=== PATIENT | female | born 1960 | race African-American/Black ===

== ENCOUNTER 2016-11-10 17:56 | Emergency (ER) | payer OTHER ==
[~2016-11-10] VITALS: Ht 167.6 cm; Wt 894.8 kg
[~2016-11-10 17:56] MED LIST: ACID REDUCER150 MG PO; ADVAIR 250-501 EACH; AMLODIPINE BESY10 MG PO; AMLODIPINE BESYL5 MG PO; ANCEF,KEFZ2 GM/100 M IV; ANTIVERT25 MG PO; APRESOLIN50 MG PO; APRESOLINE50 M1 PO; ASPIR 8181 M1 PO; ASPIR-LOW81 M1 PO; ASPIR-LOW81 MG PO; ASPIRIN E.C.81 M1 PO; ASPIRIN81 M1 PO; Advair HFA 115/21 IH; Apresoline PO; Aspirin E.C. PO; BACTRIM,SEPT1 TABLET PO; CLINDAMYCIN HC300 MG PO; CLOPIDOGREL75 MG PO; CYCLOBENZAPRINE5 MG PO; Colace PO; DIFLUCAN150 MG PO; DOCUSATE SODIU100 MG PO; Diflucan PO; Dulcolax PO; ERGOCALCIF50000 UNIT PO; GABAPENTIN300 MG PO; GLUCOPHAGE1000 MG PO; GLUCOPHAGE500 MG PO; HUMULIN 70100 UNIT/2 SC; HYDRALAZINE HCL50 MG PO; HYDROCHLOROTHIA25 MG PO; HYDROCODON-ACE1 EAC8 PO; HYDROMORPHONE HC4 MG PO; Habitrol,Nicoderm CQ TD; Hydrodiuril,Oretic,E PO; IBUPROFEN600 MG PO; IBUPROFEN800 MG PO; KEFLEX500 MG PO; LANTUS 10100 UNITS/ SC; LANTUS 3 M100 UNITS/ SC; LANTUS 3 M100 UNITS1 SC; LEVEMIR100 UNIT/2 SC; LISINOPRIL40 MG PO; LOPRESSOR100 M1 PO; LOPRESSOR50 MG PO; LYRICA50 MG; LYRICA50 MG PO; Levaquin PO; Lopressor PO; MECLIZINE HCL25 MG PO; MEDIHONEY44 ML TP; METOPROLOL TAR100 MG PO; MOTRIN800 MG PO; Monistat 7 VG; NAPROSYN500 MG PO; NAPROXEN500 M2; NEURONTIN300 MG PO; NIX 5% CREAM60 GM TP; NORTRIPTYLINE H25 MG PO; NOVOLOG 10100 UNITS/ SC; NOVOLOG MI100 UNIT/M SC; NOVOLOG PE100 UNITS/ SC; ONE-A-DAY ESSE1 EACH PO; OXYCODONE-APAP1 EACH PO; PERCOCET 10/1 TABLET PO; PERCOCET 5/31 TABLET PO; PLAVIX75 MG PO; POLYETHYLENE GL17 GM PO; PRILOSEC OTC20 MG PO; PROAIR HFA8.5 GM IH; PROTONIX40 MG PO; PROVENTIL HFA6.7 GM IH; PROVENTIL2.5 MG/3 M IH; Plavix PO; Protonix PO; Proventil,Ventolin H IH; RANITIDINE HCL150 MG; RANITIDINE HCL150 MG PO; SIMVASTATIN20 MG PO; SPIRIVA1 INHALATI IH; Senokot S,Pericolace PO; THERAGRAN1 TABLET PO; TOPROL XL100 MG PO; TRAMADOL HCL50 MG PO; Tylenol Regular Stre PO; ULTRAM50 MG PO; VANCOMYCIN HCL1 GM IV; Vicodin,Norco 5/325 PO; ZANTAC150 MG PO; ZESTRIL,PRINIVI40 MG PO; ZESTRIL40 MG PO; ZOCOR20 MG PO; ZOCOR40 MG PO; ZOFRAN4 MG PO; Zestril,Prinivil PO; Zocor PO; oxyCODONE PO; predniSONE PO
[2016-11-10] MEDS ORDERED: KEFLEX500 MG PO (21:18)
[2016-11-10 21:26] VITALS: BP 161/75
== END 2016-11-10 21:28 | disposition home or self-care (01) ==
LOC: EME 17:56
DX: M77.31 Calcaneal spur, right foot (principal); L03.115 Cellulitis of right lower limb; E11.9 Type 2 diabetes mellitus without complications; Z79.4 Long term (current) use of insulin; Z87.891 Personal history of nicotine dependence; I10 Essential (primary) hypertension; E78.5 Hyperlipidemia, unspecified; G89.29 Other chronic pain; Z79.891 Long term (current) use of opiate analgesic; Z79.82 Long term (current) use of aspirin; Z79.02 Long term (current) use of antithrombotics/antiplatelets; J45.909 Unspecified asthma, uncomplicated
CPT/HCPCS: 73630; 99281; 99283

== ENCOUNTER 2017-08-15 19:18 | Inpatient (IN) | payer OTHER ==
[~2017-08-15] VITALS: Ht 167.6 cm; Wt 80.6 kg
[2017-08-15 19:38] LABS: HEMATOCRIT 39.4 % (36.0-46.0); MCH 27.3 PG (29.0-34.0); MCHC 32.7 G/DL (30.0-36.0); MCV 83.3 FL (83-99); MEAN PLAT.VOLUME 10.7 uM^3 (9.5-12.4); PLATELET COUNT 176 K/uL (156-360); RBC DIS.WIDTH-CV 12.2 % (11.8-14.6); RBC DIS.WIDTH-SD 37.3 % (39-53); RED BLOOD COUNT 4.73 M/uL (3.80-5.20); WHITE BLOOD COUNT 6.5 K/uL (4.1-10.2)
[2017-08-15 19:45] LABS: AMYLASE 45 IU/L (1-118); CHLORIDE 105 mEq/L (99-109); POTASSIUM 3.9 mEq/L (3.7-5.4); PROTHROMBIN TIME 11.9 SEC (10.2-12.9); SODIUM 142 mEq/L (136-147)
[2017-08-15 19:47] LABS: GLUCOSE 193 mg/dL (70-99); PTT 28.6 SEC (25-37)
[2017-08-15 19:48] LABS: ANION GAP 9 MEQ/L (2-14)
[2017-08-15 19:51] LABS: GFR ESTIMATE (CALCULATED) > 59 mL/min/
[2017-08-15 19:52] LABS: UREA NITROGEN (BUN) 11 mg/dL (9-23)
[2017-08-15 19:54] LABS: LIPASE 6 U/L (1.0-51.0)
[2017-08-15 19:58] LABS: TROP-I INTERPRETATION NEGATIVE; TROPONIN-I 0.01 ng/mL (0.0-0.30)
[2017-08-15] MEDS ORDERED: LANTUS 10100 UNITS/ SC (23:24)
[2017-08-15] MEDS ORDERED: OXYMORPHONE HCL5 M1 PO (23:26)
[2017-08-15] MEDS ORDERED: AMLODIPINE BESY10 MG PO (23:28)
[2017-08-15] MEDS ORDERED: TESSALON PERLE100 MG PO (23:29)
[2017-08-16 02:39] LABS: TROP-I INTERPRETATION NEGATIVE; TROPONIN-I 0.01 ng/mL (0.0-0.30)
[2017-08-16 03:24] VITALS: BP 205/84
[2017-08-16 05:59] LABS: AMPHETAMINES QUANT VALUE 0 NG/ML; BARBITUATES QUANT VALUE 0 NG/ML; BENZODIAZEPINES QUANT VALUE 0 NG/ML; BENZODIAZEPINES, URINE SCREEN Negative (200 ng/mL); MARIJUANA QUANT VALUE 0 NG/ML; PHENCYCLIDINE QUANT VALUE 0 NG/ML
[2017-08-16 07:55] VITALS: BP 148/65
[2017-08-16 08:28] LABS: POINT-OF-CARE METER ID UU14188625
[2017-08-16 08:52] LABS: TROP-I INTERPRETATION NEGATIVE; TROPONIN-I 0.01 ng/mL (0.0-0.30)
[2017-08-16 08:57] LABS: HDL CHOLESTEROL 32 MG/DL (Desirable>=50); LDL CHOLESTEROL 127 mg/dL (Desirable<100); NON-HDL CHOLESTEROL 165 mg/dL (Desirable<160); TOTAL CHOLESTEROL 197 mg/dL (Desirable<200); TRIGLYCERIDES 192 MG/DL (Normal: <150)
[2017-08-16 09:15] LABS: Estimated Average Glucose 206 mg/dL (70-123); HEMOGLOBIN A1c (GLYCOHEMOGLOB) 8.8 % HGB (Below 5.7)
[2017-08-16 11:53] LABS: POINT-OF-CARE METER ID UU14174225
[2017-08-16 12:00] VITALS: BP 134/63
[2017-08-16 17:23] LABS: POINT-OF-CARE METER ID UU13113717
[2017-08-16 18:34] LABS: POINT-OF-CARE METER ID UU14188625
[2017-08-16 20:01] VITALS: BP 136/65
[2017-08-16 20:59] LABS: POINT-OF-CARE METER ID UU13113717
[2017-08-16 23:39] VITALS: BP 189/71
[2017-08-17 03:46] VITALS: BP 154/71
[2017-08-17 07:02] LABS: POINT-OF-CARE METER ID UU13113717
[2017-08-17 07:06] VITALS: BP 128/58
[2017-08-17 07:11] LABS: HEMATOCRIT 33.2 % (36.0-46.0); MCH 27.1 PG (29.0-34.0); MCHC 32.5 G/DL (30.0-36.0); MCV 83.4 FL (83-99); MEAN PLAT.VOLUME 12.1 uM^3 (9.5-12.4); PLATELET COUNT 148 K/uL (156-360); RBC DIS.WIDTH-CV 12.4 % (11.8-14.6); RBC DIS.WIDTH-SD 38.2 % (39-53); RED BLOOD COUNT 3.98 M/uL (3.80-5.20); WHITE BLOOD COUNT 8.8 K/uL (4.1-10.2)
[2017-08-17 07:16] LABS: ANION GAP 7 MEQ/L (2-14); CHLORIDE 108 MEQ/L (99-109); GFR ESTIMATE (CALCULATED) > 59 mL/min/; GLUCOSE 165 mg/dL (70-99); POTASSIUM 3.6 MEQ/L (3.7-5.4); SAMPLE HEMOLYSIS CHECK 0; SAMPLE ICTERIC CHECK 0; SAMPLE LIPEMIA CHECK 0; SODIUM 142 MEQ/L (136-147); UREA NITROGEN (BUN) 18 mg/dL (9-23)
[2017-08-17 11:03] VITALS: BP 124/59
[2017-08-17 11:17] LABS: POINT-OF-CARE METER ID UU14188625
[2017-08-17 15:13] VITALS: BP 147/66
[2017-08-17 16:36] LABS: POINT-OF-CARE METER ID UU13113717
[2017-08-17 20:07] VITALS: BP 161/70
[2017-08-17 21:33] LABS: POINT-OF-CARE METER ID UU13113717
[2017-08-17 23:48] VITALS: BP 169/89
[2017-08-18 04:00] VITALS: BP 191/82
[2017-08-18 07:09] VITALS: BP 160/72
[2017-08-18 07:13] LABS: POINT-OF-CARE METER ID UU14174225
[2017-08-18 07:56] LABS: ANION GAP 9 MEQ/L (2-14); CHLORIDE 108 MEQ/L (99-109); GFR ESTIMATE (CALCULATED) > 59 mL/min/; GLUCOSE 115 mg/dL (70-99); POTASSIUM 3.9 MEQ/L (3.7-5.4); SAMPLE HEMOLYSIS CHECK 0; SAMPLE ICTERIC CHECK 0; SAMPLE LIPEMIA CHECK 0; SODIUM 143 MEQ/L (136-147); UREA NITROGEN (BUN) 24 mg/dL (9-23)
[2017-08-18 11:20] LABS: POINT-OF-CARE METER ID UU14188625
[2017-08-18 11:22] VITALS: BP 162/70
[2017-08-18 15:17] VITALS: BP 153/80
[2017-08-18 16:44] LABS: POINT-OF-CARE METER ID UU14188625
[2017-08-18 19:50] VITALS: BP 167/73
[2017-08-18 21:10] LABS: POINT-OF-CARE METER ID UU14188625
[2017-08-18 23:56] VITALS: BP 127/65
[2017-08-19 03:51] VITALS: BP 134/67
[2017-08-19 07:01] LABS: POINT-OF-CARE METER ID UU14174225
[2017-08-19 07:12] VITALS: BP 173/72
[2017-08-19 08:19] LABS: POINT-OF-CARE METER ID UU14174225
[2017-08-19] MEDS ORDERED: PREDNISONE20 MG PO (10:50)
[2017-08-19] MEDS ORDERED: LIPITOR80 MG PO (13:46)
[2017-08-19] MEDS ORDERED: OXYCONTIN10 MG PO (13:47)
[2017-08-19] MEDS ORDERED: MUCUS ER600 MG PO (13:49)
[2017-08-19] MEDS ORDERED: PEPCID20 MG PO (13:49)
[2017-08-19] MEDS ORDERED: LOVENOX40 MG/0.4 SC (13:50)
== END 2017-08-19 12:30 | DRG 65 ==
LOC: EME → EDBD 19:18 → EDOF 08-16 00:57 → 5SOUTH 08-16 00:57 → ENRESERV 08-16 00:58 → 5SOUTH 08-16 02:19
PROVIDERS: Hospitalist; Internal Medicine; Physician Assistant
DX: I63.9 Cerebral infarction, unspecified (principal); R47.01 Aphasia; I65.23 Occlusion and stenosis of bilateral carotid arteries; I69.351 Hemiplegia and hemiparesis following cerebral infarction affecting right dominant side; R13.10 Dysphagia, unspecified; J45.901 Unspecified asthma with (acute) exacerbation; J20.9 Acute bronchitis, unspecified; E11.40 Type 2 diabetes mellitus with diabetic neuropathy, unspecified; E11.51 Type 2 diabetes mellitus with diabetic peripheral angiopathy without gangrene; I10 Essential (primary) hypertension; E78.5 Hyperlipidemia, unspecified; E87.6 Hypokalemia; G47.33 Obstructive sleep apnea (adult) (pediatric); Z91.19 Patient's noncompliance with other medical treatment and regimen; G43.909 Migraine, unspecified, not intractable, without status migrainosus; K21.9 Gastro-esophageal reflux disease without esophagitis; M54.9 Dorsalgia, unspecified; G89.29 Other chronic pain; F17.210 Nicotine dependence, cigarettes, uncomplicated; Z79.4 Long term (current) use of insulin; Z79.02 Long term (current) use of antithrombotics/antiplatelets; Z79.82 Long term (current) use of aspirin; Z85.820 Personal history of malignant melanoma of skin; Z95.820 Peripheral vascular angioplasty status with implants and grafts; Z89.411 Acquired absence of right great toe; Z80.3 Family history of malignant neoplasm of breast
CPT/HCPCS: 70450; 70551; 71020; 80048; 80061; 80306 90; 82150; 82948; 83036; 83690; 84484; 85027; 85610; 85730; 92523 GN; 92610 GN; 93005; 93306; 93880; 94640; 94640 76; 94660; 99202; 99281; 99285; J1650; J1815; J7512; J7644

== ENCOUNTER 2017-08-19 11:02 | Inpatient (IN) | payer OTHER ==
[~2017-08-19] VITALS: Ht 167.6 cm; Wt 79.7 kg
[~2017-08-19 11:02] MED LIST changes: +OXYMORPHONE HCL5 M1 PO; +PREDNISONE20 MG PO; +TESSALON PERLE100 MG PO
[2017-08-19 12:30] VITALS: BP 145/63
[2017-08-19 13:00] LABS: POINT-OF-CARE METER ID UU14174215
[2017-08-19] MEDS ORDERED: LIPITOR80 MG PO (13:46)
[2017-08-19] MEDS ORDERED: OXYCONTIN10 MG PO (13:47)
[2017-08-19] MEDS ORDERED: PEPCID20 MG PO (13:49)
[2017-08-19] MEDS ORDERED: MUCUS ER600 MG PO (13:49)
[2017-08-19] MEDS ORDERED: LOVENOX40 MG/0.4 SC (13:50)
[2017-08-19 15:35] VITALS: BP 149/65
[2017-08-19 16:16] LABS: POINT-OF-CARE METER ID UU14174215
[2017-08-19 20:44] LABS: POINT-OF-CARE METER ID UU14174215
[2017-08-19 23:54] VITALS: BP 180/62
[2017-08-20 06:05] VITALS: BP 134/63
[2017-08-20 06:38] LABS: HEMATOCRIT 37.3 % (36.0-46.0); MCH 27.5 PG (29.0-34.0); MCHC 32.4 G/DL (30.0-36.0); MCV 84.8 FL (83-99); RBC DIS.WIDTH-CV 12.8 % (11.8-14.6); RBC DIS.WIDTH-SD 39.5 % (39-53); WHITE BLOOD COUNT 12.3 K/uL (4.1-10.2)
[2017-08-20 07:02] LABS: ALKALINE PHOSPHATASE 40 IU/L (3-129); ANION GAP 5 MEQ/L (2-14); CHLORIDE 107 MEQ/L (99-109); GFR ESTIMATE (CALCULATED) > 59 mL/min/; GLUCOSE 124 mg/dL (70-99); POTASSIUM 3.6 MEQ/L (3.7-5.4); SAMPLE HEMOLYSIS CHECK 0; SAMPLE ICTERIC CHECK 0; SAMPLE LIPEMIA CHECK 0; SODIUM 141 MEQ/L (136-147); TOTAL BILIRUBIN 0.4 MG/DL (0.0-1.0); UREA NITROGEN (BUN) 24 mg/dL (9-23)
[2017-08-20 07:25] LABS: MEAN PLAT.VOLUME 12.1 uM^3 (9.5-12.4); PLAT.SUFFICIENCY ADEQUATE; PLATELET COUNT 176 K/uL (156-360)
[2017-08-20 11:41] LABS: POINT-OF-CARE METER ID UU14174215
[2017-08-20 15:20] VITALS: BP 112/51
[2017-08-20 17:03] LABS: POINT-OF-CARE METER ID UU14174215
[2017-08-20 20:30] LABS: POINT-OF-CARE METER ID UU14174215
[2017-08-21 06:43] VITALS: BP 142/63
[2017-08-21 07:45] LABS: POINT-OF-CARE METER ID UU14174215
[2017-08-21 11:29] LABS: POINT-OF-CARE METER ID UU13113720
[2017-08-21 15:28] VITALS: BP 132/61
[2017-08-21 16:43] LABS: POINT-OF-CARE METER ID UU14174215
[2017-08-21 21:45] LABS: POINT-OF-CARE METER ID UU14174215
[2017-08-22 05:15] VITALS: BP 148/69
[2017-08-22 07:23] LABS: POINT-OF-CARE METER ID UU14174215
[2017-08-22 11:32] LABS: POINT-OF-CARE METER ID UU14174215
[2017-08-22 15:29] VITALS: BP 150/69
[2017-08-22 16:26] LABS: POINT-OF-CARE METER ID UU13113720
[2017-08-22 21:14] LABS: POINT-OF-CARE METER ID UU13113720
[2017-08-23 04:40] VITALS: BP 99/48
[2017-08-23 08:00] VITALS: BP 142/65
[2017-08-23 08:18] LABS: POINT-OF-CARE METER ID UU14174215; POINT-OF-CARE USER ID AHSSSJB31
[2017-08-23 11:36] LABS: POINT-OF-CARE METER ID UU14174215; POINT-OF-CARE USER ID AHSSSJB31
[2017-08-23 15:50] VITALS: BP 141/63
[2017-08-23 16:16] LABS: POINT-OF-CARE METER ID UU14174215
[2017-08-23 20:37] LABS: POINT-OF-CARE METER ID UU13113720
[2017-08-24 05:16] VITALS: BP 123/63
[2017-08-24 06:45] LABS: HEMATOCRIT 35.9 % (36.0-46.0); MCHC 31.8 G/DL (30.0-36.0); MCV 84.9 FL (83-99); RBC DIS.WIDTH-CV 12.8 % (11.8-14.6); RBC DIS.WIDTH-SD 39.2 % (39-53); RED BLOOD COUNT 4.23 M/uL (3.80-5.20); WHITE BLOOD COUNT 8.2 K/uL (4.1-10.2)
[2017-08-24 07:05] LABS: ALKALINE PHOSPHATASE 51 IU/L (3-129); ANION GAP 7 MEQ/L (2-14); CHLORIDE 108 MEQ/L (99-109); GFR ESTIMATE (CALCULATED) > 59 mL/min/; GLUCOSE 84 mg/dL (70-99); POTASSIUM 3.8 MEQ/L (3.7-5.4); SAMPLE HEMOLYSIS CHECK 0; SAMPLE ICTERIC CHECK 0; SAMPLE LIPEMIA CHECK 0; SODIUM 143 MEQ/L (136-147); TOTAL BILIRUBIN 0.4 MG/DL (0.0-1.0); UREA NITROGEN (BUN) 30 mg/dL (9-23)
[2017-08-24 07:48] LABS: MEAN PLAT.VOLUME 11.6 uM^3 (9.5-12.4); PLAT.SUFFICIENCY ADEQUATE; PLATELET COUNT 181 K/uL (156-360)
[2017-08-24 07:53] LABS: POINT-OF-CARE METER ID UU14174215; POINT-OF-CARE USER ID AHSSSJB31
[2017-08-24 07:57] VITALS: BP 154/74
[2017-08-24 12:16] LABS: POINT-OF-CARE METER ID UU13113720; POINT-OF-CARE USER ID AHSSSJB31
[2017-08-24 15:56] VITALS: BP 117/58
[2017-08-24 16:32] LABS: POINT-OF-CARE METER ID UU14174215
[2017-08-24] MEDS ORDERED: LIPITOR80 MG PO (20:51)
[2017-08-24] MEDS ORDERED: DOCUSATE SODIU100 MG PO (20:51)
[2017-08-24] MEDS ORDERED: LEVEMIR100 UNIT/2 SC (20:51)
[2017-08-24] MEDS ORDERED: ANTIVERT25 MG PO (20:51)
[2017-08-24] MEDS ORDERED: PLAVIX75 MG PO (20:51)
[2017-08-24 21:16] LABS: POINT-OF-CARE METER ID UU13113720
[2017-08-25 05:27] VITALS: BP 111/55
[2017-08-25 07:05] LABS: POINT-OF-CARE METER ID UU13113720; POINT-OF-CARE USER ID ENVGAF
[2017-08-25 11:43] LABS: POINT-OF-CARE METER ID UU13113720
== END 2017-08-25 15:31 | disposition home health service (06) | DRG 57 ==
LOC: 3WEST 11:02 → ENPENDDIS 08-25 → 3WEST 08-25 15:31
PROVIDERS: Physical Medicine & Rehabilitation Pain Medicine
PROC: F07M0ZZ Range of Motion and Joint Mobility Treatment of Musculoskeletal System - Whole Body (ICD-10-PCS; principal; 2017-08-19)
DX: I69.351 Hemiplegia and hemiparesis following cerebral infarction affecting right dominant side (principal); I69.320 Aphasia following cerebral infarction; E66.01 Morbid (severe) obesity due to excess calories; G47.33 Obstructive sleep apnea (adult) (pediatric); J45.901 Unspecified asthma with (acute) exacerbation; J20.9 Acute bronchitis, unspecified; E78.5 Hyperlipidemia, unspecified; D69.6 Thrombocytopenia, unspecified; D64.9 Anemia, unspecified; E11.51 Type 2 diabetes mellitus with diabetic peripheral angiopathy without gangrene; F17.200 Nicotine dependence, unspecified, uncomplicated; I10 Essential (primary) hypertension; K21.9 Gastro-esophageal reflux disease without esophagitis; G89.29 Other chronic pain; E87.6 Hypokalemia; G43.909 Migraine, unspecified, not intractable, without status migrainosus; I65.22 Occlusion and stenosis of left carotid artery; R13.10 Dysphagia, unspecified; I69.391 Dysphagia following cerebral infarction; Z89.411 Acquired absence of right great toe; Z68.28 Body mass index [BMI] 28.0-28.9, adult
CPT/HCPCS: 70498; 80053; 82948; 85027; 92507 GN; 92523 GN; 94640; 94640 76; 97110 GO; 97530 GP; 97532 GN; 99202; J1650; J1815; J7512

== ENCOUNTER 2017-09-29 17:16 | Emergency (ER) | payer OTHER ==
[~2017-09-29] VITALS: Ht 170.2 cm; Wt 80.5 kg
[~2017-09-29 17:16] MED LIST changes: +LIPITOR80 MG PO; +LOVENOX40 MG/0.4 SC; +MUCUS ER600 MG PO; +OXYCONTIN10 MG PO; +PEPCID20 MG PO
[2017-09-29 18:29] LABS: HEMATOCRIT 36.4 % (36.0-46.0); HEMOGLOBIN 11.9 G/DL (11.9-15.5); MCH 27.4 PG (29.0-34.0); MCHC 32.7 G/DL (30.0-36.0); MCV 83.9 FL (83-99); PLATELET COUNT 171 K/uL (156-360); RBC DIS.WIDTH-CV 13.2 % (11.8-14.6); RBC DIS.WIDTH-SD 39.9 % (39-53); RED BLOOD COUNT 4.34 M/uL (3.80-5.20); WHITE BLOOD COUNT 6.4 K/uL (4.1-10.2)
[2017-09-29 18:39] LABS: CHLORIDE 107 mEq/L (99-109); SODIUM 142 mEq/L (136-147)
[2017-09-29 18:40] LABS: GLUCOSE 174 mg/dL (70-99)
[2017-09-29 18:44] LABS: GFR ESTIMATE (CALCULATED) > 59 mL/min/
[2017-09-29 18:45] LABS: UREA NITROGEN (BUN) 12 mg/dL (9-23)
[2017-09-29] MEDS ORDERED: SKELAXIN800 MG PO (20:25)
[2017-09-29 21:01] VITALS: BP 145/67
== END 2017-09-29 21:02 | disposition home or self-care (01) ==
LOC: EME 17:16
PROVIDERS: Physician Assistant
DX: M54.12 Radiculopathy, cervical region (principal); I10 Essential (primary) hypertension; E78.5 Hyperlipidemia, unspecified; J45.909 Unspecified asthma, uncomplicated; K21.9 Gastro-esophageal reflux disease without esophagitis; F17.200 Nicotine dependence, unspecified, uncomplicated; Z79.82 Long term (current) use of aspirin; Z86.73 Personal history of transient ischemic attack (TIA), and cerebral infarction without residual deficits; Z95.828 Presence of other vascular implants and grafts; Z88.5 Allergy status to narcotic agent; Z88.8 Allergy status to other drugs, medicaments and biological substances
CPT/HCPCS: 72125; 80048; 85027; 99281; 99284; J3010

== ENCOUNTER → 2017-11-13 | Outpatient (CLI) | payer OTHER ==
[~2017-11-13] MED LIST changes: +SKELAXIN800 MG PO
== END | disposition home or self-care (01) ==
LOC: CDC 12:30
DX: Z01.810 Encounter for preprocedural cardiovascular examination (principal); I51.7 Cardiomegaly; R94.31 Abnormal electrocardiogram [ECG] [EKG]
CPT/HCPCS: 93000

== ENCOUNTER 2017-12-24 14:05 | Day surgery (SDC) | payer OTHER ==
[~2017-12-24] VITALS: Ht 167.6 cm; Wt 81.6 kg
[~2017-12-24 14:05] MED LIST changes: +CILOSTAZOL100 MG PO; +FLEXERIL5 MG PO; +OXYMORPHONE HC7.5 MG PO; -OXYMORPHONE HCL5 M1 PO; +PROCARDIA XL60 MG PO
[2017-12-24 14:39] VITALS: BP 174/76
[2017-12-24 14:44] LABS: HEMATOCRIT 38.4 % (36.0-46.0); HEMOGLOBIN 11.9 G/DL (11.9-15.5); MCH 26.6 PG (29.0-34.0); MCV 85.7 FL (83-99); PLATELET COUNT 225 K/uL (156-360); RBC DIS.WIDTH-CV 13.2 % (11.8-14.6); RBC DIS.WIDTH-SD 41.1 % (39-53); RED BLOOD COUNT 4.48 M/uL (3.80-5.20); WHITE BLOOD COUNT 7.8 K/uL (4.1-10.2)
[2017-12-24 15:08] LABS: CHLORIDE 111 MEQ/L (99-109); CREATININE 1.1 MG/DL (0.6-1.3); GFR ESTIMATE (CALCULATED) > 59 mL/min/; GLUCOSE 157 mg/dL (70-99); SODIUM 144 MEQ/L (136-147); UREA NITROGEN (BUN) 19 mg/dL (9-23)
[2017-12-24 17:55] VITALS: BP 191/88
[2017-12-24 18:30] VITALS: BP 172/70
== END 2017-12-24 18:55 | disposition home or self-care (01) ==
LOC: SDC 14:05
PROVIDERS: Surgery
DX: E11.52 Type 2 diabetes mellitus with diabetic peripheral angiopathy with gangrene (principal); I70.262 Atherosclerosis of native arteries of extremities with gangrene, left leg; E11.69 Type 2 diabetes mellitus with other specified complication; M86.172 Other acute osteomyelitis, left ankle and foot; I73.00 Raynaud's syndrome without gangrene; I73.1 Thromboangiitis obliterans [Buerger's disease]; K21.9 Gastro-esophageal reflux disease without esophagitis; I10 Essential (primary) hypertension; I69.351 Hemiplegia and hemiparesis following cerebral infarction affecting right dominant side; Z87.891 Personal history of nicotine dependence; Z79.82 Long term (current) use of aspirin; Z79.4 Long term (current) use of insulin; Z88.5 Allergy status to narcotic agent
CPT/HCPCS: 80048; 82948; 85027; 88305; 88311; J0690; J2250; J2405; J3010; S0020

== ENCOUNTER 2018-01-28 23:40 | Emergency (ER) | payer OTHER ==
[~2018-01-28] VITALS: Ht 167.6 cm; Wt 82.6 kg
[~2018-01-28 23:40] MED LIST changes: +ASPIRIN EC325 MG PO; +LO-DOSE ASPIRIN81 M1 PO; +METOPROLOL TART25 MG PO
[2018-01-29 01:05] LABS: HEMATOCRIT 35.9 % (36.0-46.0); HEMOGLOBIN 12.1 G/DL (11.9-15.5); MCH 27.9 PG (29.0-34.0); MCHC 33.7 G/DL (30.0-36.0); MCV 82.9 FL (83-99); PLATELET COUNT 205 K/uL (156-360); RBC DIS.WIDTH-CV 13.1 % (11.8-14.6); RBC DIS.WIDTH-SD 39.8 % (39-53); RED BLOOD COUNT 4.33 M/uL (3.80-5.20); WHITE BLOOD COUNT 12.4 K/uL (4.1-10.2)
[2018-01-29 01:17] LABS: CHLORIDE 102 mEq/L (99-109); POTASSIUM 3.6 mEq/L (3.7-5.4); SODIUM 140 mEq/L (136-147)
[2018-01-29 01:19] LABS: GLUCOSE 225 mg/dL (70-99)
[2018-01-29 01:23] LABS: CREATININE 1.9 mg/dL (0.6-1.3); GFR ESTIMATE (CALCULATED) 35 mL/min/; UREA NITROGEN (BUN) 17 mg/dL (9-23)
[2018-01-29] MEDS ORDERED: CLEOCIN300 MG PO ×2 (02:00→02:45)
[2018-01-29 02:58] VITALS: BP 151/82
== END 2018-01-29 02:58 | disposition home or self-care (01) ==
LOC: EME 23:40
PROVIDERS: Emergency Medicine
DX: L03.116 Cellulitis of left lower limb (principal); Z98.890 Other specified postprocedural states; Z89.422 Acquired absence of other left toe(s); I10 Essential (primary) hypertension; E11.9 Type 2 diabetes mellitus without complications; Z79.4 Long term (current) use of insulin; J44.9 Chronic obstructive pulmonary disease, unspecified; F17.200 Nicotine dependence, unspecified, uncomplicated; Z79.82 Long term (current) use of aspirin; Z86.73 Personal history of transient ischemic attack (TIA), and cerebral infarction without residual deficits; Z87.891 Personal history of nicotine dependence; Z88.5 Allergy status to narcotic agent; Z88.8 Allergy status to other drugs, medicaments and biological substances
CPT/HCPCS: 73630; 80048; 83605; 85027

== ENCOUNTER 2018-02-05 16:41 | Inpatient (IN) | payer OTHER ==
[~2018-02-05] VITALS: Ht 167.6 cm; Wt 83.7 kg
[~2018-02-05 16:41] MED LIST changes: +CLEOCIN300 MG PO
[2018-02-05 18:24] LABS: BASOPHIL (%) 1.3 % (0-1); BASOPHIL COUNT 0.1 K/uL (0-0.1); EOSINOPHIL (%) 4.8 % (0-5); EOSINOPHIL COUNT 0.3 K/uL (0-0.3); HEMATOCRIT 32.1 % (36.0-46.0); HEMOGLOBIN 10.7 G/DL (11.9-15.5); IMMATURE GRANULOCYTE (%) 0.3 % (0.0-0.7); LYMPHOCYTE (%) 17.7 % (15-42); LYMPHOCYTE COUNT 1.1 K/uL (1.0-2.8); MCH 27.7 PG (29.0-34.0); MCHC 33.3 G/DL (30.0-36.0); MCV 83.2 FL (83-99); MONOCYTE (%) 6.7 % (3-12); MONOCYTE COUNT 0.4 K/uL (0-0.8); NEUTROPHIL (%) 69.2 % (45-76); NEUTROPHIL COUNT 4.2 K/uL (1.8-6.4); PLATELET COUNT 258 K/uL (156-360); RBC DIS.WIDTH-CV 13.1 % (11.8-14.6); RBC DIS.WIDTH-SD 39.8 % (39-53); RED BLOOD COUNT 3.86 M/uL (3.80-5.20); WHITE BLOOD COUNT 6.1 K/uL (4.1-10.2)
[2018-02-05 18:39] LABS: ALBUMIN 3.9 g/dL (3.2-4.8)
[2018-02-05 18:40] LABS: CHLORIDE 106 mEq/L (99-109); POTASSIUM 3.3 mEq/L (3.7-5.4); SODIUM 144 mEq/L (136-147)
[2018-02-05 18:42] LABS: GLUCOSE 154 mg/dL (70-99); TOTAL PROTEIN 6.9 g/dL (6.4-8.3)
[2018-02-05 18:44] LABS: TOTAL BILIRUBIN 0.2 mg/dL (0.0-1.0)
[2018-02-05 18:45] LABS: ALKALINE PHOSPHATASE 55 IU/L (3-129)
[2018-02-05 18:46] LABS: CREATININE 1.1 mg/dL (0.6-1.3); GFR ESTIMATE (CALCULATED) > 59 mL/min/
[2018-02-05 18:47] LABS: AST (GOT) 11 IU/L (2-34); UREA NITROGEN (BUN) 12 mg/dL (9-23)
[2018-02-05 18:48] LABS: ALT (GPT) 8 IU/L (3-49)
[2018-02-05] MEDS ORDERED: PROAIR HFA8.5 GM IH (19:16)
[2018-02-05] MEDS ORDERED: NEURONTIN300 MG PO (19:21)
[2018-02-05] MEDS ORDERED: NEOSPORIN ANT70.8 GM TP (19:22)
[2018-02-05] MEDS ORDERED: ANTIVERT25 MG PO (19:24)
[2018-02-05] MEDS ORDERED: LEVEMIR100 UNIT/2 SC ×2 (19:31→19:32)
[2018-02-06] VITALS (7 sets, daily range): BP systolic 142–192; BP diastolic 60–97
[2018-02-06 06:01] LABS: BASOPHIL (%) 1.2 % (0-1); BASOPHIL COUNT 0.1 K/uL (0-0.1); EOSINOPHIL COUNT 0.3 K/uL (0-0.3); HEMATOCRIT 32.7 % (36.0-46.0); HEMOGLOBIN 10.6 G/DL (11.9-15.5); IMMATURE GRANULOCYTE (%) 0.1 % (0.0-0.7); LYMPHOCYTE (%) 14.7 % (15-42); MCH 26.9 PG (29.0-34.0); MCHC 32.4 G/DL (30.0-36.0); MONOCYTE (%) 7.6 % (3-12); MONOCYTE COUNT 0.5 K/uL (0-0.8); NEUTROPHIL (%) 72.4 % (45-76); PLATELET COUNT 281 K/uL (156-360); RBC DIS.WIDTH-CV 12.9 % (11.8-14.6); RBC DIS.WIDTH-SD 39.4 % (39-53); RED BLOOD COUNT 3.94 M/uL (3.80-5.20); WHITE BLOOD COUNT 6.9 K/uL (4.1-10.2)
[2018-02-06 06:33] LABS: CHLORIDE 108 MEQ/L (99-109); CREATININE 1.1 MG/DL (0.6-1.3); GFR ESTIMATE (CALCULATED) > 59 mL/min/; GLUCOSE 188 mg/dL (70-99); POTASSIUM 3.1 MEQ/L (3.7-5.4); SODIUM 143 MEQ/L (136-147); UREA NITROGEN (BUN) 11 mg/dL (9-23)
[2018-02-06 07:20] LABS: ERTH.SED.RATE 55 MM/HR (0-30)
[2018-02-07] VITALS (7 sets, daily range): BP systolic 148–181; BP diastolic 70–78
[2018-02-07 07:46] LABS: HEMATOCRIT 40.5 % (36.0-46.0); MCH 27.1 PG (29.0-34.0); MCHC 32.1 G/DL (30.0-36.0); MCV 84.4 FL (83-99); RBC DIS.WIDTH-CV 13.2 % (11.8-14.6); RBC DIS.WIDTH-SD 40.8 % (39-53); WHITE BLOOD COUNT 8.4 K/uL (4.1-10.2)
[2018-02-07 08:11] LABS: PLATELET COUNT 367 K/uL (156-360)
[2018-02-07 08:15] LABS: C-REACTIVE PROTEIN 7.5 MG/L (0-10); CHLORIDE 106 MEQ/L (99-109); GFR ESTIMATE (CALCULATED) > 59 mL/min/; POTASSIUM 3.6 MEQ/L (3.7-5.4); SODIUM 142 MEQ/L (136-147); UREA NITROGEN (BUN) 15 mg/dL (9-23)
[2018-02-07 08:21] LABS: GLUCOSE 70 mg/dL (70-99)
[2018-02-08 05:18] VITALS: BP 162/70
[2018-02-08 05:34] VITALS: BP 145/78
[2018-02-08 05:48] LABS: HEMATOCRIT 33.2 % (36.0-46.0); MCH 26.7 PG (29.0-34.0); MCHC 31.9 G/DL (30.0-36.0); MCV 83.6 FL (83-99); PLATELET COUNT 284 K/uL (156-360); RBC DIS.WIDTH-CV 13.1 % (11.8-14.6); RBC DIS.WIDTH-SD 39.4 % (39-53); RED BLOOD COUNT 3.97 M/uL (3.80-5.20)
[2018-02-08 05:51] LABS: HEMOGLOBIN 10.6 G/DL (11.9-15.5)
[2018-02-08 06:27] LABS: CHLORIDE 110 MEQ/L (99-109); CREATININE 0.9 MG/DL (0.6-1.3); GFR ESTIMATE (CALCULATED) > 59 mL/min/; POTASSIUM 4.2 MEQ/L (3.7-5.4); SODIUM 144 MEQ/L (136-147); UREA NITROGEN (BUN) 15 mg/dL (9-23)
[2018-02-08 06:29] LABS: GLUCOSE 122 mg/dL (70-99)
[2018-02-08 08:03] VITALS: BP 145/70
[2018-02-08] MEDS ORDERED: APRESOLINE25 MG PO (10:48)
[2018-02-08] MEDS ORDERED: BACTRIM,SEPT1 TABLET PO (10:50)
[2018-02-08 11:50] VITALS: BP 152/80
== END 2018-02-08 13:31 | disposition home health service (06) | DRG 565 ==
LOC: EME 16:41 → EDOF 20:26 → 3EAST 20:26 → ENRESERV 20:30 → 3EAST 23:34
PROVIDERS: Emergency Medicine; Hospitalist; Physician Assistant
DX: T87.44 Infection of amputation stump, left lower extremity (principal); Y83.5 Amputation of limb(s) as the cause of abnormal reaction of the patient, or of later complication, without mention of misadventure at the time of the procedure; E11.69 Type 2 diabetes mellitus with other specified complication; M86.9 Osteomyelitis, unspecified; L03.116 Cellulitis of left lower limb; M60.074 Infective myositis, left foot; B95.62 Methicillin resistant Staphylococcus aureus infection as the cause of diseases classified elsewhere; E11.649 Type 2 diabetes mellitus with hypoglycemia without coma; E87.6 Hypokalemia; I10 Essential (primary) hypertension; E78.5 Hyperlipidemia, unspecified; E27.9 Disorder of adrenal gland, unspecified; E78.00 Pure hypercholesterolemia, unspecified; E11.40 Type 2 diabetes mellitus with diabetic neuropathy, unspecified; K21.9 Gastro-esophageal reflux disease without esophagitis; M19.072 Primary osteoarthritis, left ankle and foot; G89.29 Other chronic pain; J44.9 Chronic obstructive pulmonary disease, unspecified; Z86.14 Personal history of Methicillin resistant Staphylococcus aureus infection; Z86.73 Personal history of transient ischemic attack (TIA), and cerebral infarction without residual deficits; Z87.891 Personal history of nicotine dependence; Z89.411 Acquired absence of right great toe; Z89.422 Acquired absence of other left toe(s); Z79.82 Long term (current) use of aspirin; Z79.4 Long term (current) use of insulin; Z79.891 Long term (current) use of opiate analgesic; Z89.022 Acquired absence of left finger(s)
CPT/HCPCS: 73720; 80048; 80053; 80202; 82948; 83605; 85025; 85027; 85651; 86140; 87040; 99281; 99285; J0295; J1650; J1815; J1885; J2543; J3370; J7050

== ENCOUNTER 2018-03-03 20:59 | Emergency (ER) | payer OTHER ==
[~2018-03-03] VITALS: Ht 167.6 cm; Wt 79.8 kg
[~2018-03-03 20:59] MED LIST changes: +APRESOLINE25 MG PO; +NEOSPORIN ANT70.8 GM TP
[2018-03-03] MEDS ORDERED: NARCAN4 MG NS (21:49)
[2018-03-03 22:38] VITALS: BP 180/92
== END 2018-03-03 22:38 | disposition home or self-care (01) ==
LOC: EME → EDBD 20:59 → EME 22:38
DX: T40.1X1A Poisoning by heroin, accidental (unintentional), initial encounter (principal); E10.9 Type 1 diabetes mellitus without complications; J44.9 Chronic obstructive pulmonary disease, unspecified; I10 Essential (primary) hypertension; Z86.73 Personal history of transient ischemic attack (TIA), and cerebral infarction without residual deficits; E78.5 Hyperlipidemia, unspecified; Z89.422 Acquired absence of other left toe(s); Z89.421 Acquired absence of other right toe(s); Z79.82 Long term (current) use of aspirin; Z88.5 Allergy status to narcotic agent; F17.200 Nicotine dependence, unspecified, uncomplicated
CPT/HCPCS: 99281; 99285